=== PATIENT | female | born 1965 | race Caucasian/White ===

== ENCOUNTER → 2021-02-16 08:56 | Outpatient (CLI) | payer OTHER, SELFPAY ==
[2021-02-16 10:05] LABS: Hematocrit 37.9 % (36-46); Hemoglobin 12.7 g/dL (12.0-16.0); Mean Corpuscular HGB Conc 33.6 % (30-36); Mean Corpuscular Hemoglobin 32.1 PG (26-34); Mean Corpuscular Volume 95.5 fL (80-100); Platelet Count 213 X10^3/uL (150-400); Red Blood Cell Count 3.97 X10^6/uL (4.0-5.2); Red Cell Distribution Width 13.1 % (11.6-14.8); White Blood Cell Count 5.5 X10^3/uL (4.5-11.0)
[2021-02-16 10:18] LABS: Alanine Aminotransferase 17 IU/L (<35); Albumin Globulin Ratio 1.5 (1.0-2.8); Alkaline Phosphatase 78 U/L (38-126); Aspartate Aminotransferase 24 IU/L (14-36); BUN Creatinine Ratio 23.1 (6-22); Bilirubin Total 0.4 mg/dL (0.2-1.3); Blood Urea Nitrogen 18 mg/dL (7-17); Calcium 9.3 mg/dL (8.4-10.2); Carbon Dioxide 31 mmol/L (22-32); Chloride 108 mmol/L (98-107); Cholesterol 205 mg/dL (140-199); Estimated Glomerular Filt Rate > 60.0 mL/min (>60); Globulin 2.6 g/dL (1.7-4.1); Glucose 94 mg/dL (70-100); HDL Cholesterol 66 mg/dL (40-60); HEMOLYSIS < 15 (0-50); LDL Cholesterol Calculated 116 mg/dL (<100); Potassium 3.7 mmol/L (3.4-5.1); Sodium 141 mmol/L (137-145); Total Protein 6.6 g/dL (6.3-8.2); Triglycerides 117 mg/dL (35-150)
== END ==
PROVIDERS: PCP Registered Nurse Diabetes Educator; Referring Provider Registered Nurse Diabetes Educator; Visit Provider Registered Nurse Diabetes Educator
DX: I10 Essential (primary) hypertension (principal)
CPT/HCPCS: 36415; 80053; 80061; 84443; 85027

== ENCOUNTER → 2022-05-03 13:56 | Outpatient (CLI) | payer OTHER, SELFPAY ==
--- NOTE | 2022-05-03 | DI.MG.S_ITS ---
BILATERAL DIGITAL SCREENING MAMMOGRAM 3D/2D WITH CAD: 05/03/2022 CLINICAL: Routine screening. No prior exams were available for comparison. There are scattered areas of fibroglandular density in both breasts (category b / 25%-50% glandular tissue). Current study was also evaluated with a Computer Aided Detection (CAD) system. There is a biopsy clip in the left breast. No significant masses, calcifications, or other findings are seen in either breast. IMPRESSION: NEGATIVE There is no mammographic evidence of malignancy. A 1 year screening mammogram is recommended. Based on the Tyrer Cuzick model (a risk assessment model) the patient's lifetime risk is 10.7% and her 10 year risk is 3.3%. According to the ACR, ACS, and NCCN guidelines, an annual breast MRI exam along with mammogram is recommended if the patient's lifetime risk is 20% or greater. This exam was interpreted at Station ID: [id number]. NOTE: For mammograms, a report in lay terms will be sent to the patient. Approximately 15% of breast malignancies will not be visualized mammographically. In the management of a palpable breast mass, a negative mammogram must not discourage biopsy of a clinically suspicious lesion. Electronically Signed By: Tim Neumann M.D. [facility] [place]/:05/03/2022 15:42:56 letter sent: Normal Exam ACR BI-RADS Category 1: Negative 3341F
== END ==
PROVIDERS: PCP Registered Nurse Diabetes Educator; Referring Provider Registered Nurse Diabetes Educator; Visit Provider Registered Nurse Diabetes Educator
DX: Z12.31 Encounter for screening mammogram for malignant neoplasm of breast (principal)
CPT/HCPCS: 77063; 77067

== ENCOUNTER → 2022-05-05 07:17 | Outpatient (CLI) | payer OTHER, SELFPAY ==
[2022-05-05 09:51] LABS: Hematocrit 38.9 % (36-46); Mean Corpuscular HGB Conc 33.5 % (30-36); Mean Corpuscular Hemoglobin 31.8 PG (26-34); Platelet Count 235 X10^3/uL (150-400); Red Blood Cell Count 4.09 X10^6/uL (4.0-5.2); Red Cell Distribution Width 13.1 % (11.6-14.8); White Blood Cell Count 5.7 X10^3/uL (4.5-11.0)
[2022-05-05 10:04] LABS: Alanine Aminotransferase 27 IU/L (<35); Albumin 4.3 g/dL (3.5-5.0); Albumin Globulin Ratio 1.3 (1.0-2.8); Alkaline Phosphatase 90 U/L (38-126); Aspartate Aminotransferase 29 IU/L (14-36); BUN Creatinine Ratio 28.8 (6-22); Bilirubin Total 0.4 mg/dL (0.2-1.3); Blood Urea Nitrogen 21 mg/dL (7-17); Calcium 8.9 mg/dL (8.4-10.2); Carbon Dioxide 30 mmol/L (22-32); Chloride 102 mmol/L (98-107); Cholesterol 206 mg/dL (140-199); Estimated Glomerular Filt Rate > 60 mL/min (>60); Globulin 3.2 g/dL (1.7-4.1); Glucose 83 mg/dL (70-100); HDL Cholesterol 54 mg/dL (40-60); HEMOLYSIS < 15 (0-50); LDL Cholesterol Calculated 131 mg/dL (<100); Potassium 4.1 mmol/L (3.4-5.1); Sodium 141 mmol/L (137-145); Total Protein 7.5 g/dL (6.3-8.2); Triglycerides 105 mg/dL (35-150)
[2022-05-05 11:01] LABS: TSH w/ Reflex to FT4 1.04 uIU/mL (0.47-4.68)
== END ==
PROVIDERS: PCP Registered Nurse Diabetes Educator; Referring Provider Registered Nurse Diabetes Educator; Visit Provider Registered Nurse Diabetes Educator
DX: Z00.00 Encounter for general adult medical examination without abnormal findings (principal); E78.5 Hyperlipidemia, unspecified; I10 Essential (primary) hypertension
CPT/HCPCS: 36415; 80053; 80061; 84443; 85027

== ENCOUNTER 2022-06-23 11:55 | Day surgery (SDC) | payer OTHER, SELFPAY ==
[2022-06-23] MEDS: LACTATED RINGERS 1,000 ML 150 ML IV (12:08)
[2022-06-23 12:28] VITALS: BP 109/67; PULSE 76; RESP 16; TEMP 36.3; O2SAT 95; BMI 30.4
--- NOTE | 2022-06-23 13:31 | P.HP_ITS ---
History of Present Illness History of Present Illness Date Patient Seen: 06/23/22 Time Patient Seen: 13:31 Chief complaint: Screening Colonoscopy Narrative: Ms. Andre presents today for screening colonoscopy. Her last colonoscopy was in 2006 and as far as she remembers was clear. This was done in the [facility]. She had had colonoscopies prior to that and the reason was for a cramping abdominal pain that she described as similar in feeling to her lactose intolerance. But in addition to the pain she also was having diarrhea and her skin would turn red and sometimes even syncope was associated. She believes that she had an EGD and colonoscopy during the workup for these episodes. She thinks that she had some ulcers in her small intestines. She was told that it is possible she had Crohn's disease. However she really has not had any similar symptoms for several years. She does not have any family history of colon cancer and no concerning symptoms at this time. He does have hemorrhoids. On occasion she feels like she has half of a bowel movement and the other half gets ?stuck?. Otherwise she has no questions [facility] Medical History Asthma (~1976) Common migraine (~2001) Dyslipidemia Essential hypertension (~2016) Foot pain (~2019) Genital HSV (~2006) Irritable bowel syndrome (~2006) Mild intermittent asthma Prolapse of female pelvic organs Surgical History Anesthesia History of mandibular surgery (~1985) History of nasal surgery (~1986) Status post cervical polyp removal (~2018) Family History Father Skin cancer Mother Diabetes mellitus Hypertension Stroke Social History household members: spouse Smoking Status: Never smoker alcohol intake: current Meds Home Medications and Allergies Home Medications Medication Instructions Recorded Confirmed Type fexofenadine 180 mg tablet 180 mg PO DAILY 12/01/20 06/23/22 History (Mia Allergy) triamcinolone acetonide 55 mcg 1 spray intranasal DAILY 12/01/20 06/23/22 History nasal spray aerosol (Nasacort) albuterol sulfate 90 mcg/actuation 2 puff inhalation Q4-6H PRN 05/03/22 06/23/22 Rx aerosol inhaler shortness of breath or wheezing #8.5 grams trazodone 50 mg tablet 50 mg PO BEDTIME PRN sleep #30 tabs 05/03/22 06/23/22 Rx ubrogepant 50 mg tablet (Ubrelvy) 50 mg PO ONCE PRN migraine 05/03/22 06/23/22 Rx headache #10 tabs valacyclovir 500 mg tablet 500 mg PO DAILY #90 tabs 05/03/22 06/23/22 Rx lisinopril 10 1 tab PO DAILY #90 tabs 05/06/22 06/23/22 Rx mg-hydrochlorothiazide 12.5 mg tablet Allergies Allergy/AdvReac Type Severity Reaction Status Date / Time hydromorphone [From Dilaudid] Allergy Severe red and Verified 06/23/22 12:16 itchy Exam Vital Signs (past 8 hours): - 06/23/22 12:28 Temperature 97.3 F L Pulse Rate 76 Respiratory Rate 16 Blood Pressure 109/67 Pulse Oximetry 95 Oxygen Delivery Method Room Air Oxygen Delivery Method Room Air Const General: cooperative, healthy appearing and comfortable Eyes General: appearance normal, both eyes and all related structures Resp Effort & Inspection: normal respiratory effort and able to speak in complete sentences GI Palpation: soft and No tender Assessment & Plan Assessment and plan (1) Colon cancer screening: Status: Acute Assessment & Plan narrative: Presents today for screening colonoscopy I discussed the risks benefits and alternatives including but not limited to perforation of the colon and an incomplete exam she fully understands these risks and would like to proceed. Think the sensation of a bowel movement being stuck is probably related to the pelvic floor dysfunction. I have suggested that twice a day fiber supple mentation could ameliorate the symptoms. If this is not enough and she does not experience improvement I offered to talk to her further in my office and see if there is anything in addition that could help.
[2022-06-23 14:13] VITALS: BP 101/65; PULSE 71; RESP 14; TEMP 36.5; O2SAT 95
[2022-06-23 14:18] VITALS: BP 111/62; PULSE 72; RESP 11; O2SAT 100
[2022-06-23 14:22] VITALS: BP 107/58; PULSE 69; RESP 11; TEMP 36.2; O2SAT 100
[2022-06-23 15:06] VITALS: BP 97/62; PULSE 60; RESP 20; TEMP 36.6; O2SAT 100
--- NOTE | 2022-06-23 16:17 | P.OP.COLON_ITS ---
Operative Date/Time/Diagnoses Date of procedure: 06/23/22 Pre-op diagnosis: Screening for colon cancer Post-op diagnosis: same Procedure & Clinicians Study performed: Colonoscopy Same procedure as scheduled: Yes Indications: Screening for colon cancer Surgeon: Yamilet Arnold Procedure Notes Procedure in detail: Patient was taken to the endoscopy suite and placed in a left lateral decubitus position. A time-out was performed. With the help Dr. Dominique conscious sedation was induced and maintained throughout the case. Digital rectal exam was performed and there were no strictures or masses. The colonoscope was placed into the anal canal and advanced through to the cecum. Good amount of abdominal pressure was required to reach the cecum and the appendiceal orifice was photographed. The bowel prep was good [place] bowel prep score of 2. The scope was then withdrawn slowly for the course of 14 minutes. No further polyps were seen. Specimen(s): none sent Complications: none Post-procedure Recommendations: Colonoscopy in 10 years
== END 2022-06-23 15:20 | disposition home or self-care (01) ==
PROVIDERS: PCP Registered Nurse Diabetes Educator; Referring Provider Surgery; Visit Provider Surgery
PROC: 0DJD8ZZ Inspection of Lower Intestinal Tract, Via Natural or Artificial Opening Endoscopic (ICD-10-PCS; CPT 45378; principal; 2022-06-23 12:45)
DX: Z12.11 Encounter for screening for malignant neoplasm of colon (principal)
CPT/HCPCS: 45378; J2704; J3010

== ENCOUNTER 2023-03-30 11:38 | Emergency (ER) | payer OTHER, SELFPAY ==
[2023-03-30] VITALS (22 sets, daily range): BP systolic 101–176; BP diastolic 55–95; PULSE 59–94; RESP 13–22; TEMP 36.5; O2SAT 95–100; BMI 32.5
[2023-03-30 12:08] LABS: Add Manual Diff / Slide Review NO; Basophils Absolute Auto 0 /uL (0-100); Basophils Percent Auto 0.6 % (0-2); Eosinophils Absolute Auto 100 /uL (0-450); Hematocrit 40.2 % (36-46); Hemoglobin 13.9 g/dL (12.0-16.0); Lymphocytes Absolute Auto 1100 /uL (1100-4500); Lymphocytes Percent Auto 13.9 % (25-40); Mean Corpuscular HGB Conc 34.5 % (30-36); Mean Corpuscular Hemoglobin 32.2 PG (26-34); Mean Corpuscular Volume 93.4 fL (80-100); Monocytes Absolute Auto 400 /uL (0-900); Neutrophils Absolute Auto 6300 /uL (1500-7000); Neutrophils Percent Auto 79.5 % (50-75); Platelet Count 280 X10^3/uL (150-400); Red Cell Distribution Width 13.2 % (11.6-14.8); White Blood Cell Count 7.9 X10^3/uL (4.5-11.0)
--- NOTE | 2023-03-30 12:08 | ED.GENADULT ---
HPI - General Adult General Chief complaint: Dizziness Stated complaint: dizziness, fluttering in chest Time Seen by Provider: 03/30/23 11:40 Source: patient Mode of arrival: Ambulatory History of Present Illness HPI narrative: Patient is a 57-year-old female. With a history of migraines. Has seen neurology in the past. Has not on any medications now. Is here for evaluation of a couple weeks of intermittent fluttering in her chest, no chest pain, dizziness. She describes some of the dizziness has a lightheadedness. Some as a vertigo sensation. No ringing in her ears. No abdominal pain. No nausea. Occasionally has some tingling in her fingers but nothing currently. She states that this morning the symptoms for more persistent and have lasted longer than what they normally do which is why she is here in the ER. She was also very anxious about the symptoms. She denies any headaches. Related Data Home Medications Medication Instructions Recorded Confirmed fexofenadine 180 mg tablet 180 mg PO DAILY 12/01/20 06/23/22 (Mia Allergy) triamcinolone acetonide 55 mcg 1 spray intranasal DAILY 12/01/20 06/23/22 nasal spray aerosol (Nasacort) Previous Rx's Medication Instructions Recorded albuterol sulfate 90 mcg/actuation 2 puff inhalation Q4-6H PRN 05/03/22 aerosol inhaler shortness of breath or wheezing #8.5 grams trazodone 50 mg tablet 50 mg PO BEDTIME PRN sleep #30 tabs 05/03/22 ubrogepant 50 mg tablet (Ubrelvy) 50 mg PO ONCE PRN migraine 05/03/22 headache #10 tabs valacyclovir 500 mg tablet 500 mg PO DAILY #90 tabs 05/03/22 lisinopril 10 1 tab PO DAILY #90 tabs 05/06/22 mg-hydrochlorothiazide 12.5 mg tablet psyllium husk (with sugar) 3.4 1 tsp PO BID #822 grams 06/23/22 gram/7 gram oral powder (Fiber (psyllium husk-sugar)) lorazepam 0.5 mg tablet (Ativan) 0.5 mg PO BID PRN anxiety #14 tabs 03/30/23 meclizine 25 mg tablet 25 mg PO BID PRN dizziness #14 tabs 03/30/23 Allergies Allergy/AdvReac Type Severity Reaction Status Date / Time hydromorphone [From Dilaudid] Allergy Severe red and Verified 03/30/23 14:52 itchy Review of Systems Review of Systems ROS Unobtainable: All systems reviewed & are unremarkable except as noted in HPI and below Patient History Medical History Prolapse of female pelvic organs Dyslipidemia Irritable bowel syndrome (~2006) Asthma (~1976) Foot pain (~2019) Genital HSV (~2006) Common migraine (~2001) Mild intermittent asthma Essential hypertension (~2016) Surgical History Anesthesia History of mandibular surgery (~1985) History of nasal surgery (~1986) Status post cervical polyp removal (~2018) Family History Father Skin cancer Mother Diabetes mellitus Hypertension Stroke Social History household members: spouse Smoking Status: Never smoker alcohol intake: current Smoking Status: Never smoker alcohol intake frequency: holidays/special occasions only Substance Use Type: does not use Exam Initial Vital Signs Initial Vital Signs: Vital Signs Temperature 97.7 F 03/30/23 11:40 Pulse Rate 94 H 03/30/23 11:40 Respiratory Rate 20 03/30/23 11:40 Blood Pressure 161/87 H 03/30/23 11:40 Pulse Oximetry 100 03/30/23 11:40 Oxygen Delivery Method Room Air 03/30/23 11:40 Const General: cooperative, comfortable and No ill appearing HENVT Head: normal to inspection and normocephalic Resp Effort & Inspection: normal respiratory effort Auscultation: clear to auscultation bilaterally Cardio Rate: regular rate Rhythm: regular rhythm GI Inspection: normal to inspection and non-distended Neuro General: patient alert, patient awake, patient oriented x3 and moves all extremities Speech: speech normal Motor: muscle tone normal throughout Extrem General: No edema Psych Other: Anxious affect Course Orders Ordered: ED Orders 03/30/23 11:48 EKG-12 Lead Stat 03/30/23 11:54 Complete Blood Count AUTO DIFF Stat Comprehensive Metabolic Panel Stat Lipase Stat 03/30/23 13:55 CT head/brain wo con Stat Discontinued Medications Acetaminophen (Acetaminophen 325 Mg Tablet) 650 mg PO NOW ONE Stop: 03/30/23 13:30 Last Admin: 03/30/23 13:32 Dose: 650 mg Documented By: WILMER Diazepam (Diazepam 10 Mg/2 Ml Syringe) 2 mg IV NOW ONE Stop: 03/30/23 12:09 Last Admin: 03/30/23 12:22 Dose: 2 mg Documented By: WILMER Sodium Chloride (Normal Saline 0.9%) 1,000 mls @ 1,000 mls/hr IV BOLUS ONE Stop: 03/30/23 13:17 Last Infusion: 03/30/23 13:19 Dose: Infused Documented By: Admin: 03/30/23 12:26 Dose: 1,000 mls/hr Documented By: WILMER Vital Signs Vital signs: Vital Signs - 8 hr 03/30/23 11:40 03/30/23 11:46 03/30/23 12:00 Temperature 97.7 F Pulse Rate 94 H 88 86 Respiratory Rate 20 17 20 Blood Pressure 161/87 H Pulse Oximetry 100 100 100 Oxygen Delivery Method Room Air 03/30/23 12:01 03/30/23 12:01 03/30/23 12:25 Temperature Pulse Rate 85 70 Respiratory Rate 22 Blood Pressure 176/95 H Pulse Oximetry 100 99 Oxygen Delivery Method Room Air 03/30/23 12:30 03/30/23 12:39 03/30/23 12:39 Temperature Pulse Rate 71 67 Respiratory Rate 19 18 Blood Pressure 110/55 L Pulse Oximetry 99 98 Oxygen Delivery Method 03/30/23 12:45 03/30/23 12:45 03/30/23 13:00 Temperature Pulse Rate 63 Respiratory Rate 16 Blood Pressure 107/58 L 106/56 L Pulse Oximetry 98 Oxygen Delivery Method 03/30/23 13:00 03/30/23 13:15 03/30/23 13:15 Temperature Pulse Rate 63 66 Respiratory Rate 14 14 Blood Pressure 101/59 L Pulse Oximetry 98 95 Oxygen Delivery Method 03/30/23 13:33 03/30/23 13:34 03/30/23 13:34 Temperature Pulse Rate 69 67 Respiratory Rate 13 Blood Pressure 117/57 L Pulse Oximetry 99 Oxygen Delivery Method 03/30/23 13:45 03/30/23 13:45 03/30/23 14:00 Temperature Pulse Rate 66 Respiratory Rate 17 Blood Pressure 113/57 L 130/71 Pulse Oximetry 98 Oxygen Delivery Method 03/30/23 14:00 03/30/23 14:15 03/30/23 14:15 Temperature Pulse Rate 66 62 Respiratory Rate 19 21 Blood Pressure 133/74 Pulse Oximetry 99 100 Oxygen Delivery Method 03/30/23 14:30 03/30/23 14:30 03/30/23 14:47 Temperature Pulse Rate 59 L 63 Respiratory Rate 19 Blood Pressure 127/74 Pulse Oximetry 99 99 Oxygen Delivery Method 03/30/23 14:48 03/30/23 14:49 Temperature Pulse Rate 60 Respiratory Rate 22 Blood Pressure 142/68 H Pulse Oximetry 99 Oxygen Delivery Method Medical Decision Making Lab Data Lab results reviewed: Yes I reviewed the patient's lab results. 03/30/23 11:54 03/30/23 11:54 Labs: Lab Results 03/30/23 Range/Units 11:54 WBC 7.9 (4.5-11.0) X10^3/uL RBC 4.30 (4.0-5.2) X10^6/uL Hgb 13.9 (12.0-16.0) g/dL Hct 40.2 (36-46) % MCV 93.4 (80-100) fL MCH 32.2 (26-34) PG MCHC 34.5 (30-36) % RDW 13.2 (11.6-14.8) % Plt Count 280 (150-400) X10^3/uL Neut % (Auto) 79.5 H (50-75) % Lymph % (Auto) 13.9 L (25-40) % [place] % (Auto) 5.0 (3-14) % Eos % (Auto) 1.0 L (2-4) % Baso % (Auto) 0.6 (0-2) % Neut # (Auto) 6300 (7909-2042) /uL Lymph # (Auto) 1100 (7756-7242) /uL [place] # (Auto) 400 (0-900) /uL Eos # (Auto) 100 (0-450) /uL Baso # (Auto) 0 (0-100) /uL Sodium 140 (137-145) mmol/L Potassium 3.5 (3.4-5.1) mmol/L Chloride 104 (98-107) mmol/L Carbon Dioxide 23 (22-32) mmol/L BUN 15 (7-17) mg/dL Creatinine 0.75 (0.52-1.04) mg/dL Estimated GFR > 60 (>60) mL/min BUN/Creatinine Ratio 20.0 (6-22) Glucose 111 H (70-100) mg/dL Calcium 10.1 (8.4-10.2) mg/dL Total Bilirubin 0.6 (0.2-1.3) mg/dL AST 27 (14-36) IU/L ALT 24 (<35) IU/L Alkaline Phosphatase 110 (38-126) U/L Total Protein 8.3 H (6.3-8.2) g/dL Albumin 4.7 (3.5-5.0) g/dL Globulin 3.6 (1.7-4.1) g/dL Albumin/Globulin Ratio 1.3 (1.0-2.8) Lipase 240 (23-300) U/L Urine Dip Bedside Urine Glucose Negative Bedside Urine Bilirubin - Negative Bedside Urine Ketone - Negative Urine Specific [place] 1.010 Bedside Urine Occult Blood - Negative Bedside Urine pH 8.0 Bedside Urine Protein - Negative Bedside Urine Urobilinogen - Negative Bedside Urine Nitrite - Negative Bedside Urine Leukocytes - Negative Esterase Point of care testing: Urine Dip Bedside Urine Glucose Negative Bedside Urine Bilirubin - Negative Bedside Urine Ketone - Negative Urine Specific [place] 1.010 Bedside Urine Occult Blood - Negative Bedside Urine pH 8.0 Bedside Urine Protein - Negative Bedside Urine Urobilinogen - Negative Bedside Urine Nitrite - Negative Bedside Urine Leukocytes - Negative Esterase Imaging Data Chest x-ray: Radiologist's Impression: PROCEDURE: CT HEAD/BRAIN WO CON INDICATIONS: Lightheadedness/vertigo TECHNIQUE: Noncontrast 4.5 mm thick angled axial sections acquired from the foramen magnum to the vertex, with coronal and sagittal reformats. For radiation dose reduction, the following was used: automated exposure control, adjustment of mA and/or kV according to patient size. COMPARISON: None. FINDINGS: Image quality: Diagnostic. CSF spaces: Basal cisterns are patent. No extra-axial fluid collections. Ventricles are normal in size and shape. Brain: No midline shift. No intracranial masses or hemorrhage. French-white matter interface is normal. Skull and face: Calvarium and visualized facial bones are intact, without suspicious lesions. Sinuses: Visualized sinuses and mastoids are clear. IMPRESSION: No imaging explanation is found for this patient's presenting symptoms. No acute intracranial pathology. ECG Data Attestation: I personally reviewed and interpreted this ECG as follows: Interpretation: Sinus rhythm Ventricular rate 81 Normal axis Normal QRS Normal QTC No ST T wave changes Discharge Plan Departure Patient Disposition: Home Clinical Impression: Lightheadedness Instructions: DI for Dizziness-Nonvertigo Activity Restrictions/Additional Instructions: I know it is frustrating that we do not have a definitive diagnosis as to what is causing your symptoms however hopefully it is reassuring that your workup here in the emergency department is relatively unremarkable. I do think that you would benefit from referral to see a specialist. I gave you the phone number for the ear nose and throat providers. You can contact them to schedule follow-up. Also recommend you contact your primary doctor as you may need a repeat referral to go see Neurology. Return to the emergency department for new symptoms. Prescriptions: New meclizine 25 mg tablet 25 mg PO BID PRN (Reason: dizziness) Qty: 14 0RF lorazepam [Ativan] 0.5 mg tablet 0.5 mg PO BID PRN (Reason: anxiety) Qty: 14 0RF No Action lisinopril-hydrochlorothiazide 10-12.5 mg tablet 1 tab PO DAILY Qty: 90 3RF Ubrelvy 50 mg tablet 50 mg PO ONCE PRN (Reason: migraine headache) Qty: 10 5RF Hold Instructions: not currently taking but may need if migraines recur Rx Instructions: as a single dose; may repeat once in >=2 hours after first dose if needed albuterol sulfate 90 mcg/actuation HFA aerosol inhaler 2 puff inhalation Q4-6H PRN (Reason: shortness of breath or wheezing) Qty: 8.5 1RF valacyclovir 500 mg tablet 500 mg PO DAILY Qty: 90 3RF trazodone 50 mg tablet 50 mg PO BEDTIME PRN (Reason: sleep) Qty: 30 3RF Rx Instructions: If ineffective may increase to 2 tabs at bedtime as needed. fexofenadine [Mia Allergy] 180 mg tablet 180 mg PO DAILY triamcinolone acetonide [Nasacort] 55 mcg aerosol,spray 1 spray intranasal DAILY Rx Instructions: administer into each nostril Fiber (psyllium husk-sugar) 3.4 gram/7 gram powder 1 tsp PO BID Qty: 822 0RF Referrals: Binh Ramsey MD [Physician] - Momo Armstrong ARNP [Primary Care Provider] - Stand Alone Forms: Patient Portal/API
[2023-03-30 12:16] LABS: Alanine Aminotransferase 24 IU/L (<35); Albumin 4.7 g/dL (3.5-5.0); Albumin Globulin Ratio 1.3 (1.0-2.8); Alkaline Phosphatase 110 U/L (38-126); Aspartate Aminotransferase 27 IU/L (14-36); Bilirubin Total 0.6 mg/dL (0.2-1.3); Blood Urea Nitrogen 15 mg/dL (7-17); Calcium 10.1 mg/dL (8.4-10.2); Carbon Dioxide 23 mmol/L (22-32); Chloride 104 mmol/L (98-107); Estimated Glomerular Filt Rate > 60 mL/min (>60); Globulin 3.6 g/dL (1.7-4.1); Glucose 111 mg/dL (70-100); HEMOLYSIS < 15 (0-50); Lipase 240 U/L (23-300); Potassium 3.5 mmol/L (3.4-5.1); Sodium 140 mmol/L (137-145); Total Protein 8.3 g/dL (6.3-8.2)
[2023-03-30] MEDS: diazePAM 10 MG/2 ML SYRINGE 2 MG IV (12:22)
[2023-03-30] MEDS: SODIUM CHLORIDE 0.9% 1,000 ML 1000 ML IV (12:26)
[2023-03-30] MEDS: ACETAMINOPHEN 325 MG TABLET 650 MG PO (13:32)
--- NOTE | 2023-03-30 13:55 | DI.CT.S_ITS ---
PROCEDURE: CT HEAD/BRAIN WO CON INDICATIONS: Lightheadedness/vertigo TECHNIQUE: Noncontrast 4.5 mm thick angled axial sections acquired from the foramen magnum to the vertex, with coronal and sagittal reformats. For radiation dose reduction, the following was used: automated exposure control, adjustment of mA and/or kV according to patient size. COMPARISON: None. FINDINGS: Image quality: Diagnostic. CSF spaces: Basal cisterns are patent. No extra-axial fluid collections. Ventricles are normal in size and shape. Brain: No midline shift. No intracranial masses or hemorrhage. French-white matter interface is normal. Skull and face: Calvarium and visualized facial bones are intact, without suspicious lesions. Sinuses: Visualized sinuses and mastoids are clear. IMPRESSION: No imaging explanation is found for this patient's presenting symptoms. No acute intracranial pathology. Dictated by: Yoseph Choi M.D. on 03/30/2023 at 14:02 Approved by: Yoseph Choi M.D. on 03/30/2023 at 14:03
== END 2023-03-30 15:51 | disposition home or self-care (01) ==
PROVIDERS: Emergency Provider Emergency Medicine; PCP Registered Nurse Diabetes Educator
DX: R42 Dizziness and giddiness (principal); Z79.899 Other long term (current) drug therapy
CPT/HCPCS: 36415; 70450; 80053; 81003; 83690; 85025; 93005; 96361; 96374; 99284; J3360

== ENCOUNTER → 2023-04-05 13:29 | Outpatient (CLI) | payer OTHER, SELFPAY ==
--- NOTE | 2023-04-05 13:30 | DI.US.S_ITS ---
PROCEDURE: US PERIPH VENOUS LOW EXTREM LT INDICATIONS: LEG PAIN. RULE OUT DEEP VEIN THROMBOSIS VERSUS MCFADDEN CYST. TECHNIQUE: Real-time imaging, as well as color and pulse Doppler interrogation, were performed of the lower extremity deep veins from the inguinal ligament to the popliteal fossa, with documentation of the visualized calf veins. COMPARISON: None. FINDINGS: The common femoral, femoral, popliteal, and the visualized calf veins are normally compressible, and free of intraluminal thrombus. Color and pulse Doppler demonstrate normal phasic intraluminal flow. There is normal augmentation response to distal compression maneuver. No Mcfadden's cyst is seen. IMPRESSION: No findings of lower extremity deep venous thrombosis. No Mcfadden's cyst can be seen. Dictated by: Yoseph Choi M.D. on 04/05/2023 at 13:33 Approved by: Yoseph Choi M.D. on 04/05/2023 at 13:34
== END ==
PROVIDERS: PCP Registered Nurse Diabetes Educator; Referring Provider Nurse Practitioner Family; Visit Provider Nurse Practitioner Family
DX: M79.662 Pain in left lower leg (principal)
CPT/HCPCS: 93971

== ENCOUNTER → 2023-04-11 11:28 | Outpatient (CLI) | payer OTHER, SELFPAY ==
--- NOTE | 2023-04-11 11:29 | DI.RAD.S_ITS ---
PROCEDURE: XR HIP W PEL IF DONE QUIQUE MIN 4V INDICATIONS: L hip pain TECHNIQUE: AP pelvis with lateral view(s) of the left hip(s). COMPARISON: None. FINDINGS: Bones: No fractures or dislocations. Pelvic ring appears intact. No suspicious bony lesions. There is cortical irregularity in the ischial tuberosities bilaterally, likely secondary to enthesopathy at the hamstring tendon insertion. Soft tissues: The visualized bowel gas pattern is normal. No suspicious soft tissue calcifications. IMPRESSION: 1. No acute bony abnormality. 2. Enthesopathy in ischial tuberosities bilaterally. Dictated by: Ephraim Hyatt M.D. on 04/11/2023 at 12:46 Approved by: Ephraim Hyatt M.D. on 04/11/2023 at 12:49
--- NOTE | 2023-04-11 11:29 | DI.RAD.S_ITS ---
PROCEDURE: XR LUMBAR SPINE 2-3V INDICATIONS: Low back pain w/radiation into L leg TECHNIQUE: 3 views of the lumbar spine were acquired. COMPARISON: None. FINDINGS: Bones: 5 [id number] vertebrae are present. There is normal bony alignment. No vertebral body compression fractures. No suspicious bony lesions. Mild degenerative disease at L4-L5 and L5-S1. Moderate facet arthropathy at L4-L5 and L5-S1. Soft tissues: Overlying bowel gas pattern is normal. No suspicious soft tissue calcifications. IMPRESSION: 1. Mild degenerative disease and moderate facet arthropathy in lumbar spine. Dictated by: Ephraim Hyatt M.D. on 04/11/2023 at 12:51 Approved by: Ephraim Hyatt M.D. on 04/11/2023 at 12:52
== END ==
PROVIDERS: PCP Registered Nurse Diabetes Educator; Referring Provider Physician Assistant; Visit Provider Physician Assistant
DX: M51.16 Intervertebral disc disorders with radiculopathy, lumbar region (principal); M51.17 Intervertebral disc disorders with radiculopathy, lumbosacral region; M47.26 Other spondylosis with radiculopathy, lumbar region; M47.27 Other spondylosis with radiculopathy, lumbosacral region; M25.552 Pain in left hip
CPT/HCPCS: 72100; 73522

== ENCOUNTER → 2023-05-18 07:47 | Outpatient (CLI) | payer OTHER, SELFPAY ==
--- NOTE | 2023-05-18 07:48 | DI.MG.S_ITS ---
BILATERAL DIGITAL SCREENING MAMMOGRAM 3D/2D WITH CAD: 05/18/2023 CLINICAL: Routine screening. Comparison is made to exam dated: 05/03/2022 mammogram - [facility]. There are scattered areas of fibroglandular density in both breasts (category b / 25%-50% glandular tissue). Current study was also evaluated with a Computer Aided Detection (CAD) system. There is a biopsy clip in the left breast. No significant masses, calcifications, or other findings are seen in either breast. There has been no significant interval change. IMPRESSION: NEGATIVE There is no mammographic evidence of malignancy. A 1 year screening mammogram is recommended. Based on the Tyrer Cuzick model (a risk assessment model) the patient's lifetime risk is 8.4% and her 10 year risk is 2.7%. According to the ACR, ACS, and NCCN guidelines, an annual breast MRI exam along with mammogram is recommended if the patient's lifetime risk is 20% or greater. This exam was interpreted at Station ID: [id number]. NOTE: For mammograms, a report in lay terms will be sent to the patient. Approximately 15% of breast malignancies will not be visualized mammographically. In the management of a palpable breast mass, a negative mammogram must not discourage biopsy of a clinically suspicious lesion. Electronically Signed By: Jessie west/shawanda:05/18/2023 15:29:26 letter sent: Normal Exam ACR BI-RADS Category 1: Negative 3341F
[2023-05-18 09:41] LABS: Alanine Aminotransferase 28 IU/L (<35); Albumin 4.5 g/dL (3.5-5.0); Albumin Globulin Ratio 1.3 (1.0-2.8); Alkaline Phosphatase 97 U/L (38-126); Aspartate Aminotransferase 28 IU/L (14-36); BUN Creatinine Ratio 23.5 (6-22); Bilirubin Total 0.7 mg/dL (0.2-1.3); Blood Urea Nitrogen 19 mg/dL (7-17); Calcium 9.7 mg/dL (8.4-10.2); Carbon Dioxide 24 mmol/L (22-32); Chloride 111 mmol/L (98-107); Cholesterol 220 mg/dL (140-199); Estimated Glomerular Filt Rate > 60 mL/min (>60); Globulin 3.5 g/dL (1.7-4.1); Glucose 106 mg/dL (70-100); HDL Cholesterol 53 mg/dL (40-60); HEMOLYSIS < 15 (0-50); LDL Cholesterol Calculated 133 mg/dL (<100); Potassium 3.7 mmol/L (3.4-5.1); Sodium 144 mmol/L (137-145); Triglycerides 169 mg/dL (35-150)
[2023-05-18 09:51] LABS: Follicle Stimulating Hormone 46.5 mIU/mL
[2023-05-18 10:13] LABS: TSH w/ Reflex to FT4 1.18 uIU/mL (0.47-4.68)
== END ==
PROVIDERS: PCP Registered Nurse Diabetes Educator; Referring Provider Registered Nurse Diabetes Educator; Visit Provider Registered Nurse Diabetes Educator
DX: Z12.31 Encounter for screening mammogram for malignant neoplasm of breast (principal); R92.323 Mammographic fibroglandular density, bilateral breasts; N95.1 Menopausal and female climacteric states
CPT/HCPCS: 36415; 77063; 77067; 80053; 80061; 83001; 84443

== ENCOUNTER → 2024-03-18 12:29 | Outpatient (CLI) | payer BC, SELFPAY ==
--- NOTE | 2024-03-18 12:36 | DI.CT.S_ITS ---
PROCEDURE: CT ABDOMEN PELVIS W CON INDICATIONS: severe LLQ pain; nausea; possible mass LLQ TECHNIQUE: After the administration of intravenous contrast, axial sections acquired from the lung bases to the pubic symphysis. Coronal and sagittal reformats were performed. For radiation dose reduction, the following was used: automated exposure control, adjustment of mA and/or kV according to patient size. COMPARISON: None. FINDINGS: Image quality: Diagnostic. Peritoneum: No pneumoperitoneum or ascites. Bones: No acute osseous abnormality. Lower Chest: Small-moderate type 3 paraesophageal hernia (3/56). Liver: Normal in size and contour. Hepatic hypoattenuation. Sub centimeter hypodense lesions segment 4A, too small to characterize, likely representing a simple cyst (2/42). Gallbladder: No stones or pericholecystic fluid. Biliary tree: No intrahepatic or extrahepatic biliary ductal dilatation. Pancreas: Within normal limits. Spleen: Normal in size and contour. Kidneys: No hydronephrosis or obstructive urolithiasis. 1.5 cm left superior pole hypodense lesion measuring 38 HU in density (2/55). 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 Bladder: Normal in size and wall thickness. : No acute abnormality. Stomach: Normal in size and contour. Bowel: Normal in diameter without any bowel obstruction. Appendix within normal limits (3/45). Scattered colonic diverticulosis. Mild mural thickening of the rectum to 1.0 cm (2/146) with mild featureless appearance of the rectosigmoid colon Lymph Nodes: No retroperitoneal, mesenteric, or inguinal lymphadenopathy. Vascular: No abdominal aortic aneurysm. The visualized arterial vasculature is patent. Soft Tissues: No acute abnormality. IMPRESSION: 1. Rectal mural thickening without mesorectal fat stranding or adjacent diverticuli. Consider the possibility of underlying inflammatory bowel disease (ulcerative colitis over Crohn's). 2. Indeterminate left superior renal pole 1.5 cm lesion. Nonemergent renal protocol CT or MRI abdomen with and without contrast-renal protocol recommended for further evaluation. 3. Small-moderate type 3 paraesophageal hernia. 4. Hepatic steatosis. Dictated by: Newton Dowell M.D. on 03/18/2024 at 13:20 Approved by: Newton Dowell M.D. on 03/18/2024 at 13:32
== END ==
PROVIDERS: PCP Registered Nurse Diabetes Educator; Referring Provider Physician Assistant; Visit Provider Physician Assistant
DX: R11.0 Nausea (principal); R19.04 Left lower quadrant abdominal swelling, mass and lump; K44.9 Diaphragmatic hernia without obstruction or gangrene; K76.0 Fatty (change of) liver, not elsewhere classified; N28.9 Disorder of kidney and ureter, unspecified; K57.30 Diverticulosis of large intestine without perforation or abscess without bleeding; R10.32 Left lower quadrant pain
CPT/HCPCS: 74177; Q9967

== ENCOUNTER → 2024-03-29 09:04 | Outpatient (CLI) | payer BC, SELFPAY ==
[2024-03-29 09:44] LABS: Hematocrit 39.2 % (36-46); Hemoglobin 13.3 g/dL (12.0-16.0); Mean Corpuscular Hemoglobin 32.6 PG (26-34); Mean Corpuscular Volume 95.9 fL (80-100); Platelet Count 234 X10^3/uL (150-400); Red Blood Cell Count 4.09 X10^6/uL (4.0-5.2); Red Cell Distribution Width 13.2 % (11.6-14.8)
[2024-03-29 09:53] LABS: Hemoglobin A1C% w Est Avg Glu 5.4 % (4.0-6.0)
[2024-03-29 09:57] LABS: Alanine Aminotransferase 21 IU/L (<35); Albumin 4.3 g/dL (3.5-5.0); Albumin Globulin Ratio 1.5 (1.0-2.8); Alkaline Phosphatase 100 U/L (38-126); Aspartate Aminotransferase 25 IU/L (14-36); BUN Creatinine Ratio 18.2 (6-22); Bilirubin Total 0.5 mg/dL (0.2-1.3); Blood Urea Nitrogen 16 mg/dL (7-17); Calcium 9.7 mg/dL (8.4-10.2); Carbon Dioxide 28 mmol/L (22-32); Chloride 106 mmol/L (98-107); Cholesterol 240 mg/dL (140-199); Estimated Glomerular Filt Rate > 60 mL/min (>60); Globulin 2.9 g/dL (1.7-4.1); Glucose 99 mg/dL (70-100); HDL Cholesterol 56 mg/dL (40-60); HEMOLYSIS < 15 (0-50); LDL Cholesterol Calculated 144 mg/dL (<100); Potassium 3.9 mmol/L (3.4-5.1); Sodium 142 mmol/L (137-145); Total Protein 7.2 g/dL (6.3-8.2); Triglycerides 200 mg/dL (35-150)
[2024-03-29 10:28] LABS: TSH w/ Reflex to FT4 1.28 uIU/mL (0.47-4.68)
== END ==
PROVIDERS: PCP Registered Nurse Diabetes Educator; Referring Provider Registered Nurse Diabetes Educator; Visit Provider Registered Nurse Diabetes Educator
DX: I10 Essential (primary) hypertension (principal); E78.5 Hyperlipidemia, unspecified; R73.01 Impaired fasting glucose
CPT/HCPCS: 36415; 80053; 80061; 83036; 84443; 85027

== ENCOUNTER → 2024-03-31 12:31 | Outpatient (CLI) | payer BC, SELFPAY ==
--- NOTE | 2024-03-31 12:32 | DI.CT.S_ITS ---
PROCEDURE: CT ABDOMEN RENAL PROTOCOL INDICATIONS: further eval L renal lesion TECHNIQUE: Optional 5 mm thick noncontrast images acquired from the diaphragm to the iliac crests. After the administration of intravenous contrast, 5 mm thick images again acquired from the diaphragm to the iliac crests in the arterial and urographic phases. 5 mm thick coronal and sagittal reformats were then acquired. For radiation dose reduction, the following was used: automated exposure control, adjustment of mA and/or kV according to patient size. COMPARISON: [facility], CT, CT ABDOMEN PELVIS W CON, 03/18/2024, 12:45. FINDINGS: Image quality: Diagnostic Lower chest: Unremarkable lung bases Moderate hiatal hernia. Liver: Segment 4 small liver cysts. Possible mild background steatosis Gallbladder and biliary system: Unremarkable, nondilated Pancreas: No ductal dilation Spleen: Nonenlarged Adrenals: No discrete nodules Kidneys: A complicated cyst is seen in the left anterior kidney measuring 1.5 cm. There is no significant enhancement on pre and postcontrast images. Layering hyperdensity is seen on pre contrast images. Other subcentimeter lesions are too small to characterize, usually cysts. A possible right posterior kidney lipid rich angiomyolipoma is seen measuring 0.9 cm. No hydronephrosis. Vessels and lymph nodes: The main portal vein is patent. No abdominal aortic aneurysm or pathologic lymph nodes by size criteria Bowel and peritoneum: No evidence of small bowel obstruction or pathologic ascites. Body wall: Tiny fat containing umbilical hernia Bones: There are degenerative changes. IMPRESSION: Left anterior 1.5 cm renal complicated cyst, without enhancement on post contrast images compared to noncontrast images. Layering hyperdensity on noncontrast images suggestive of hemorrhagic and proteinaceous products. Bosniak 2 (no dedicated follow-up is necessary unless the patient has risk factors or history of malignancy elsewhere). Other findings above. Dictated by: Travis Smith M.D. on 03/31/2024 at 13:56 Approved by: Travis Smith M.D. on 03/31/2024 at 14:02
== END ==
PROVIDERS: PCP Registered Nurse Diabetes Educator; Referring Provider Registered Nurse Diabetes Educator; Visit Provider Registered Nurse Diabetes Educator
DX: N28.9 Disorder of kidney and ureter, unspecified (principal); K44.9 Diaphragmatic hernia without obstruction or gangrene; K76.89 Other specified diseases of liver; N28.1 Cyst of kidney, acquired
CPT/HCPCS: 74170; Q9967

== ENCOUNTER → 2024-05-19 11:14 | Outpatient (CLI) | payer BC, SELFPAY ==
--- NOTE | 2024-05-19 11:14 | DI.MG.S_ITS ---
MM screening mammo BI: 05/19/2024. BI-RADS: 2 CLINICAL: 58-year old female for bilateral screening mammogram. Tyrer-Cuzick lifetime risk of 8.6%. No personal or first-degree family history of breast cancer. The patient had a prior left breast biopsy. PRIOR EXAMS 05/18/2023, 05/03/2022. MAMMOGRAPHY TECHNIQUE: 2D and 3D (tomosynthesis) digital mammographic views obtained, with additional images as needed for full coverage. Current study was also evaluated with a Computer Aided Detection (CAD) system. DENSITY B. There are scattered areas of fibroglandular density. MAMMOGRAPHY FINDINGS Right: No suspicious mass, asymmetry, microcalcification, or other abnormality seen. No significant change from comparison. Left: Biopsy marker present on the left. There are no suspicious masses, calcifications, or other findings in the breast. No significant change from comparison. IMPRESSION: Right * No evidence of malignancy. Left * No evidence of malignancy with benign findings. RECOMMENDATIONS Bilateral * Annual screening mammography. OVERALL ASSESSMENT CATEGORY BI-RADS-2: Benign. The [employer] recommends annual screening mammography beginning at age 40 for women with average risk of breast cancer. ELECTRONICALLY SIGNED: Yen Mart M.D. on 05/19/2024 at 04:28:22 PM PT Interpreting Station ID: [id number]
== END ==
PROVIDERS: PCP Registered Nurse Diabetes Educator; Referring Provider Registered Nurse Diabetes Educator; Visit Provider Registered Nurse Diabetes Educator
DX: Z12.31 Encounter for screening mammogram for malignant neoplasm of breast (principal)
CPT/HCPCS: 77063; 77067